=== PATIENT | male | born 1965 | race Caucasian/White ===

== ENCOUNTER 2024-06-17 21:56 | Emergency (ER) | payer BC ==
[~2024-06-17] VITALS: Ht 177.8 cm; Wt 113.4 kg
[2024-06-17 23:32] VITALS: BP 162/96; TEMP 98.5; O2SAT 96
== END 2024-06-18 02:38 | disposition home or self-care (01) ==
LOC: ER 22:17
DX: S70.12XD Contusion of left thigh, subsequent encounter (principal); Z48.00 Encounter for change or removal of nonsurgical wound dressing; E11.9 Type 2 diabetes mellitus without complications; I10 Essential (primary) hypertension; Z60.2 Problems related to living alone; X58.XXXD Exposure to other specified factors, subsequent encounter